=== PATIENT | female | born 1980 | race Hispanic/Latino ===

== ENCOUNTER → 2023-01-26 | Outpatient (CLI) | payer MEDICARE | END | disposition home or self-care (01) | LOC: RAH 12:23 | PROVIDERS: ATTEND Family Medicine | DX: M47.892 Other spondylosis, cervical region (principal); M47.896 Other spondylosis, lumbar region; M54.50 Low back pain, unspecified; M54.2 Cervicalgia; M25.562 Pain in left knee | CPT/HCPCS: 72040; 72100; 73562 ==

== ENCOUNTER → 2023-07-25 | Outpatient (CLI) | payer OTHER | END | disposition home or self-care (01) | LOC: RAH 11:09 | PROVIDERS: ATTEND Family Medicine | DX: R05.9 Cough, unspecified (principal) | CPT/HCPCS: 71046 ==

== ENCOUNTER → 2023-12-10 | Outpatient (CLI) | payer OTHER | END | disposition home or self-care (01) | LOC: RAH 08:04 | PROVIDERS: ATTEND Family Medicine | DX: R10.9 Unspecified abdominal pain (principal) | CPT/HCPCS: 76700 ==

== ENCOUNTER → 2024-01-04 | Outpatient (CLI) | payer OTHER | END | disposition home or self-care (01) | LOC: RAH 11:03 | PROVIDERS: ATTEND Family Medicine | DX: S83.242A Other tear of medial meniscus, current injury, left knee, initial encounter (principal); M25.462 Effusion, left knee; X58.XXXA Exposure to other specified factors, initial encounter; Y93.89 Activity, other specified; Y92.89 Other specified places as the place of occurrence of the external cause; Y99.8 Other external cause status | CPT/HCPCS: 73721 ==